=== PATIENT | female | born 1985 | race Caucasian/White ===

== ENCOUNTER 2018-10-16 02:02 | Emergency (ER) | payer OTHER ==
[2018-10-16 02:15] VITALS: BP 121/74; PULSE 91; TEMP 98.4; BMI 32.5
--- NOTE | 2018-10-16 03:01 | PDOC ---
History of Present Illness - General Chief Complaint: Syncope/Near Syncope Stated Complaint: SYNCOPE/NEAR SYNCOPE Time Seen by Provider: 10/16/18 03:01 - History of Present Illness Initial Comments: Edna Milligan is a 33yo otherwise healthy woman who presents with a witnessed episode of syncope. Ms Milligan states that she was at a friend's house today smoking hooka and drinking a few beers. She stood up to go home, and she started feeling hot and sweaty. She then fainted. Per a friend, who is present at bedside, she had about 10-15 seconds LOC and regained consciousness without intervention shortly after falling. She then had an episode of vomiting and felt shaky. She felt somewhat improved after sitting down for a few minutes, and she went down to her own apartment. She started to take a shower, but she started to feel ill again. She sat down in the bathtub for about 20 minutes before the feeling of shakiness, nausea, and lightheadedness resolved. She then asked her friend to drive her to the ED. Ms Milligan denies any recent symptoms prior to the event tonight including nausea, vomiting, fever, respiratory symptoms, or sick contacts. She has not been out of the country. She has not eaten anything unusual recently, but she does report that she started "eating healthy" and working out over the past week ; she has cut out all sugar but has not had any imput from a doctor regarding her diet change. She says that she has been continuing to eat a normal amount of food and has been drinking plenty of fluids. Past History - Past Medical History Allergies/Adverse Reactions: Allergies Allergy/AdvReac Type Severity Reaction Status Date / Time No Known Allergies Allergy Verified 10/16/18 03:47 Home Medications: Ambulatory Orders NK [No Known Home Medication] 10/16/18 - Suicide/Smoking/Psychosocial Hx Smoking History: Smoker current status UNK Hx Alcohol Use: No Drug/Substance Use Hx: No Review of Systems - Review of Systems Comments:: General: No fevers, no chills, no weight or appetite change, no malaise HEENT: No changes in vision, no changes in hearing, no congestion, no sore throat CV: No chest pain, no palpitations, no LE edema Pulm: No SOB, no cough, no wheezing GI: +nausea/vomiting. No change in bowel habits, no melena : No frequency, no urgency, no dysuria Musc: No back pain, no joint swelling, no recent injury Skin: No rash, no lesions, no erythema Endo: No excessive thirst, no heat/cold intolerance Heme: No unusual bruising or bleeding, no swollen glands Neuro: +Syncope, no numbness/tingling, no focal weakness Vasc: No claudication Psych: No recent change in mood, no SI or HI *Physical Exam - Vital Signs Last Vital Signs Temp Pulse Resp BP Pulse Ox 98.4 F 91 H 20 121/74 100 10/16/18 02:09 10/16/18 02:09 10/16/18 02:09 10/16/18 02:09 10/16/18 02:09 - Physical Exam Comments: General: Comfortable, no acute distress HEENT: PERRL, EOMI, MMM, voice normal, normal neck ROM, no LAD Cards: RRR, no murmur appreciated Pulm: Comfortable on room air, clear to auscultation bilaterally Abd: Soft, nontender, nondistended : No CVA tenderness Ext: Atraumatic. No LE edema. ROM intact. Strength 5/5 and equal bilaterally Vasc: Extremities WWP. Skin: Normal color, no rashes or lesions Neuro: A&Ox3, CN grossly intact, normal speech, motor/sensory grossly intact and symmetric Psych: Mood appropriate to situation Moderate Sedation - Procedure Monitoring Vital Signs: Procedure Monitoring Vital Signs Temperature 98.4 F 10/16/18 02:09 Pulse Rate 91 H 10/16/18 02:09 Respiratory Rate 20 10/16/18 02:09 Blood Pressure 121/74 10/16/18 02:09 O2 Sat by Pulse Oximetry (%) 100 10/16/18 02:09 ED Treatment Course - LABORATORY CBC & Chemistry Diagram: 10/16/18 03:51 10/16/18 03:51 Medical Decision Making - Medical Decision Making 10/16/18 03:43 Edna Milligan is a 33yo otherwise healthy woman who presents with a witnessed episode of syncope with associated sweating, vomiting, and sweating in the setting of smoking hooka (tobacco) and drinking several beers. She now feels improved though still somewhat shakey. - Most likely vasovagal, possibly secondary to smoking and/or alcohol. Will r/o as a cause. - Reports cutting sugar out of her diet during the past week and "eating healthier". Chemistry sent to evaluate for electrolyte abnormalities and hypoglycemia - CBC to evaluate for anemia - EKG completed. NSR, HR 80, no abnormalities. Unlikely to be cause by a significant arrhythmia. 10/16/18 04:32 - CBC, chemistry without concerning abnormalities - test negative - UA pending 10/16/18 04:44 - UA without clear infection. As she is asymptomatic, will not treat. - Plan to d/c home with PMD follow up Discussed with Dr Allred. Ethel Grijalva PGY1 *DC/Admit/Observation/Transfer Diagnosis at time of Disposition: Syncope and collapse - Discharge Dispostion Disposition: HOME Condition at time of disposition: Stable Decision to Admit order: No - Referrals Referrals: Curt Carr MD [Primary Care Provider] - - Patient Instructions Printed Discharge Instructions: DI for Syncope in Adults (Fainting) Additional Instructions: Discharge Instructions: - You were seen in the ER for an episode of fainting. - You had blood tests, a urine analysis, and an EKG completed. All of your results were normal. - Make sure you are drinking plenty of fluids - Ensure that you are eating a well-balanced diet. - Follow up with your regular doctor within the next 1-2 weeks - Seek immediate medical attention if you have any additional episodes of fainting, you have vomiting that prevents eating/drinking, you have chest pain, you have shortness of breath, or you have any other medical emergency. - Post Discharge Activity
--- NOTE | 2018-10-16 03:41 | PDOC ---
Attending Attestation - Resident Resident Name: Ethel Grijalva - ED Attending Attestation I have performed the following: I have examined & evaluated the patient, The case was reviewed & discussed with the resident, I agree w/resident's findings & plan - HPI HPI: 10/16/18 04:43 Pt got up after partying and smoking hookah. She got dizzy and fell to the ground, and she lost consciousness for a few seconds. She has no complaints at this time. VSS. - Physicial Exam PE: 10/16/18 04:44 Agree with resident exam - Medical Decision Making 10/16/18 04:44 Pt has normal EKG and she has normal labs and normal UA and she is not . She was hydrated orally. She is stable for discharge.. 10/16/18 04:45 Pt understands that if this happens again she must return for a CT scan.
[2018-10-16 03:56] LABS: BASO % 0.9 % (0-2.0); EOS % 0.3 % (0-4.5); HEMATOCRIT 38.9 % (32.4-45.2); HEMOGLOBIN 13.2 GM/dL (10.7-15.3); LYMPH % 14.2 % (8-40); MCH 25.5 pg (25.7-33.7); MCHC 33.9 g/dl (32.0-36.0); MEAN CELL VOLUME 75.2 fl (80-96); MEAN PLT VOLUME 7.9 fl (7.5-11.1); MONO % 5.7 % (3.8-10.2); NEUT % 78.9 % (42.8-82.8); PLATELET COUNT 331 K/MM3 (134-434); RBC 5.17 M/mm3 (3.60-5.2); WHITE BLOOD COUNT 12.7 K/mm3 (4.0-10.0)
[2018-10-16 04:21] LABS: URINE APPEARANCE SLCLOUDY; URINE BILIRUBIN NEGATIVE (<2.0 mg/dL); URINE COLOR YELLOW; URINE GLUCOSE (UA) NEGATIVE (NEGATIVE); URINE KETONE NEGATIVE (NEGATIVE); URINE LEUK ESTERASE 1+ (NEGATIVE); URINE NITRITE NEGATIVE (NEGATIVE); URINE PROTEIN NEGATIVE (NEGATIVE); URINE UROBILINOGEN NEGATIVE mg/dL (0.2-1.0)
[2018-10-16 04:21] LABS: ALBUMIN 3.6 g/dl (3.4-5.0); ALK PHOS 77 U/L (45-117); ANION GAP 7 MMOL/L (8-16); BILIRUBIN,TOTAL 0.2 mg/dL (0.2-1); BLOOD UREA NITROGEN 19 mg/dL (7-18); CALCIUM 8.7 mg/dL (8.5-10.1); CHLORIDE 103 mmol/L (98-107); CO2 25 mmol/L (21-32); CREATININE 0.8 mg/dL (0.55-1.3); GLUCOSE,RANDOM 106 mg/dL (74-106); MAGNESIUM 2.4 mg/dL (1.8-2.4); PHOSPHOROUS 3.1 mg/dL (2.5-4.9); POTASSIUM 4.9 mmol/L (3.5-5.1); SGOT/AST 14 U/L (15-37); SGPT/ALT 24 U/L (13-61); SODIUM 135 mmol/L (136-145); TOT PROT 7.4 g/dl (6.4-8.2)
[2018-10-16 04:36] LABS: EPI CELLS MODERATE /HPF (FEW); URINE BACTERIA RARE /hpf (NONE SEEN); URINE MUCUS RARE
--- NOTE | 2018-10-16 11:04 | EKG ---
Test Reason : Blood Pressure : / mmHG Vent. Rate : 080 BPM Atrial Rate : 080 BPM P-R Int : 136 ms QRS Dur : 070 ms QT Int : 356 ms P-R-T Axes : 049 008 007 degrees QTc Int : 410 ms NORMAL SINUS RHYTHM NORMAL ECG NO PREVIOUS ECGS AVAILABLE Confirmed by MD JESSICA, SELMA ([id number]) on 10/16/2018 11:04:34 AM Referred By: Confirmed By:SELMA LOPEZ MD
== END 2018-10-16 04:52 | disposition home or self-care (01) ==
LOC: JER 02:02
DX: R55 Syncope and collapse (principal)
CPT/HCPCS: 36415; 80053; 81003; 81015; 83735; 84100; 84703; 85025; 93005; 93010; 99282-25

== ENCOUNTER 2024-06-12 16:33 | Emergency (ER) | payer OTHER ==
[2024-06-12 17:14] VITALS: BP 162/103; PULSE 88; RESP 17; TEMP 98.2; BMI 32.4
[2024-06-12 18:25] LABS: BASO % 1.5 % (0-2.0); EOS % 2.7 % (0-4.5); HEMATOCRIT 35.5 % (32.4-45.2); HEMOGLOBIN 11.4 GM/dL (10.7-15.3); LYMPH % 30.4 % (8-40); MCH 22.9 pg (25.7-33.7); MEAN CELL VOLUME 71.5 fl (80-96); MEAN PLT VOLUME 7.9 fl (7.5-11.1); MONO % 9.1 % (3.8-10.2); NEUT % 56.3 % (42.8-82.8); PLATELET COUNT 394 10^3/uL (134-434); RBC 4.97 M/mm3 (3.60-5.2); RDW 17.2 % (11.6-15.6); WHITE BLOOD COUNT 8.3 K/mm3 (4.0-10.0)
[2024-06-12 18:27] LABS: EPI CELLS 2 /uL (0-25.1); HYALINE CASTS 0 /uL (0-3.1); URINE APPEARANCE CLEAR; URINE BACTERIA 8 /uL (0-1359); URINE BILIRUBIN NEGATIVE (NEGATIVE); URINE COLOR YELLOW; URINE GLUCOSE (UA) NEGATIVE (NEGATIVE); URINE KETONE NEGATIVE (NEGATIVE); URINE LEUK ESTERASE NEGATIVE (NEGATIVE); URINE NITRITE NEGATIVE (NEGATIVE); URINE PROTEIN NEGATIVE (NEGATIVE); URINE RBC 238 /uL (0-23.9); URINE UROBILINOGEN 0.2 mg/dL (0.2-1.0); URINE WBC 2 /uL (0-25.8)
[2024-06-12 19:02] LABS: CALCIUM 9.1 mg/dL (8.5-10.1)
[2024-06-12 19:06] LABS: CREATININE 0.8 mg/dL (0.55-1.3)
== END 2024-06-12 21:29 | disposition home or self-care (01) ==
LOC: JER 16:33
DX: T83.32XA Displacement of intrauterine contraceptive device, initial encounter (principal); D25.1 Intramural leiomyoma of uterus; D25.2 Subserosal leiomyoma of uterus; N93.9 Abnormal uterine and vaginal bleeding, unspecified; R10.2 Pelvic and perineal pain
CPT/HCPCS: 36415; 76830-TC; 80048; 81003; 84703; 85025; 86850; 86900; 86901; 87086; 99284-25